=== PATIENT | male | born 1980 | race American Indian/Alaskan Native ===

== ENCOUNTER 2018-09-12 09:39 | Emergency (ER) | payer BC ==
[2018-09-12 10:54] VITALS: BMI 24.0
[2018-09-12 11:05] VITALS: BP 127/80; PULSE 69; RESP 18; TEMP 97.8; O2SAT 98
--- NOTE | 2018-09-12 11:18 | ED PDOC ---
Arrival/HPI - General Chief Complaint: Cough, Cold, Congestion Time Seen by Provider: 09/12/18 10:50 Historian: Patient - History of Present Illness Time/Duration: Other (last night) Symptom Onset: Gradual Symptom Course: Worsening Severity Level: Moderate Activities at Onset: Rest Associated Symptoms (Text): 09/12/18 11:14 Patient complains of sinus congestion URI symptoms and runny nose since last night. No sore throat. Very mild nonproductive cough. No fever. He does not appear ill. No dyspnea. Past Medical History - Psychiatric Hx Substance Use: No Family/Social History - Physician Review Nursing Documentation Reviewed: Yes Family/Social History: Unknown Family HX Smoking Status: Heavy Smoker > 10 Cigarettes Daily Hx Alcohol Use: Yes Frequency of alcohol use: Socially Hx Substance Use: No Allergies/Home Meds Allergies/Adverse Reactions: Allergies No Known Allergies Allergy (Verified 09/12/18 10:54) Review of Systems - Physician Review All systems were reviewed & negative as marked: Yes - Review of Systems Constitutional: absent: Fatigue, Fevers ENT: Rhinorrhea, Sinus Congestion. absent: Sore Throat, Epistaxis Respiratory: Normal Cardiovascular: Normal Physical Exam Vital Signs Temp Pulse Resp BP Pulse Ox 09/12/18 10:54 97.8 F 69 18 127/80 98 Temperature: Afebrile Blood Pressure: Normal Pulse: Regular Respiratory Rate: Normal Appearance: Positive for: Well-Appearing, Non-Toxic, Uncomfortable Pain Distress: None Mental Status: Positive for: Alert and Oriented X 3 - Systems Exam Head: Present: Atraumatic, Normocephalic. No: Tenderness, Contusion, Swelling, Ecchymosis Pupils: Present: PERRL Extroacular Muscles: Present: EOMI Conjunctiva: Present: Normal Ears: Present: NORMAL TM, Normal Canal. No: Erythema, TM Bulging Mouth: Present: Moist Mucous Membranes Pharnyx: No: ERYTHEMA, EXUDATE, TONSILS ENLARGED Nose (Internal): Present: Moist, Engorged, Edematous, Boggy, Clear Mucous, Rhinorrhea. No: No Active Bleeding, Purulent Mucous, Septal Deviation, Septal Hematoma, Epistaxis Neck: Present: Normal Range of Motion Respiratory/Chest: Present: Clear to Auscultation, Good Air Exchange. No: Respiratory Distress, Accessory Muscle Use Cardiovascular: Present: Regular Rate and Rhythm, Normal S1, S2. No: Murmurs Skin: Present: Warm, Dry, Normal Color. No: Rashes Disposition/Present on Arrival - Present on Arrival Any Indicators Present on Arrival: No History of DVT/PE: No History of Uncontrolled Diabetes: No Urinary Catheter: No History of Decub. Ulcer: No History Surgical Site Infection Following: None - Disposition Have Diagnosis and Disposition been Completed?: Yes Diagnosis: Upper respiratory disease, Sinusitis Disposition: HOME/ ROUTINE Disposition Time: 11:17 Patient Plan: Discharge Condition: GOOD Discharge Instructions (ExitCare): Sinusitis in Adults Additional Instructions: Symptomatic treatment. Tylenol or Advil as directed on bottle as needed. Follow- up with PMD. Follow up in ER as needed. Prescriptions: Fluticasone Nasal [Flonase] 1 actuation NS BID #1 spr Forms: [employer] ([place]), WORK NOTE
== END 2018-09-12 12:21 | disposition home or self-care (01) ==
LOC: MERGE 09:39 → ED 09:39
DX: J32.9 Chronic sinusitis, unspecified (principal); F17.210 Nicotine dependence, cigarettes, uncomplicated